=== PATIENT | female | born 1935 | race Two or more races ===

== ENCOUNTER 2023-10-04 06:50 | Day surgery (SDC) | payer OTHER ==
[2023-09-17 10:33] LABS: HEMATOCRIT 35.8 % (36.0-45.00); MEAN CELL VOLUME 82.4 fL (80.00-100.00); MEAN CORPUSCULAR HEMOGLOBIN 27.7 pg (27.00-32.0); MEAN CORPUSCULAR HGB CONC 33.7 g/dl (32.0-36.0); PLATELET COUNT 232 K/uL (150-450); RED BLOOD COUNT 4.34 M/uL (4.00-6.00); RED CELL DISTRIBUTION WIDTH 12.9 % (11.5-14.5)
[2023-09-17 10:37] LABS: URINE APPEARANCE Clear; URINE BILIRRUBIN Negative (NEGATIVE); URINE BLOOD Large; URINE COLOR Yellow; URINE GLUCOSE Negative (NEGATIVE); URINE LEUKOCYTE Moderate; URINE NITRATE Negative; URINE PROTEIN 30 (NEGATIVE); URINE UROBILINOGEN 0.2 E.U./dl
[2023-09-17 10:49] LABS: URINE BACTERIA 119.6 uL (0.0-1933); URINE EPITHELIAL CELLS 11.9 uL (0.0-38.8); URINE RBC 1280.6 uL (0.0-20.8); URINE WBC 209.6 uL (0.0-23.2)
[2023-09-17 11:04] LABS: INR 1.04; PARTIAL THROMBOPLASTIN TIME 28.8 SECONDS (22.0-34.0); PROTHROMBIN TIME 10.9 SECONDS (9.0-11.5)
[2023-09-17 11:21] LABS: CALCIUM 9.3 mg/dL (8.5-10.1); CREATININE SERUM 1.3 mg/dL (0.55-1.02); GFR 38.75; POTASSIUM 4.25 mEq/L (3.5-5.1)
[~2023-10-04 06:50] MED LIST: CARVEDILOL25 M1 PO; COZAAR100 MG PO; HYDROCHLOROTHIA25 MG PO
== END 2023-10-04 20:40 | disposition home or self-care (01) ==
LOC: CIR.AMB 06:50
PROVIDERS: ATTEND Urology
DX: C67.9 Malignant neoplasm of bladder, unspecified (principal); Z20.822 Contact with and (suspected) exposure to COVID-19

== ENCOUNTER 2023-12-06 10:12 | Day surgery (SDC) | payer OTHER ==
[2023-11-22 09:06] LABS: HEMATOCRIT 33.1 % (36.0-45.00); HEMOGLOBIN 10.9 g/dL (12.0-15.00); MEAN CELL VOLUME 82.1 fL (80.00-100.00); MEAN CORPUSCULAR HGB CONC 32.9 g/dl (32.0-36.0); PLATELET COUNT 335 K/uL (150-450); RED BLOOD COUNT 4.03 M/uL (4.00-6.00); RED CELL DISTRIBUTION WIDTH 13.6 % (11.5-14.5)
[2023-11-22 09:11] LABS: URINE APPEARANCE Cloudy; URINE BILIRRUBIN Negative (NEGATIVE); URINE BLOOD Large; URINE COLOR Yellow; URINE GLUCOSE Negative (NEGATIVE); URINE LEUKOCYTE Large; URINE NITRATE Negative; URINE PROTEIN Negative (NEGATIVE); URINE UROBILINOGEN 0.2 E.U./dl
[2023-11-22 09:12] LABS: URINE BACTERIA 1621.5 uL (0.0-1933); URINE EPITHELIAL CELLS 1.7 uL (0.0-38.8); URINE RBC 77.4 uL (0.0-20.8); URINE WBC 1076.2 uL (0.0-23.2)
[2023-11-22 09:26] LABS: PARTIAL THROMBOPLASTIN TIME 29.1 SECONDS (22.0-34.0); PROTHROMBIN TIME 10.5 SECONDS (9.0-11.5)
[2023-11-22 09:30] LABS: CALCIUM 9.2 mg/dL (8.5-10.1); CREATININE SERUM 1.05 mg/dL (0.55-1.02); GFR 49.57; POTASSIUM 5.17 mEq/L (3.5-5.1)
== END 2023-12-06 21:30 | disposition home or self-care (01) ==
LOC: CIR.AMB 10:12
PROVIDERS: ATTEND Urology
DX: C67.9 Malignant neoplasm of bladder, unspecified (principal); C66.2 Malignant neoplasm of left ureter; Z20.822 Contact with and (suspected) exposure to COVID-19